=== PATIENT | female | born 1960 | race African-American/Black ===

== ENCOUNTER 2021-07-11 08:13 | Emergency (ER) | payer OTHER ==
[~2021-07-11] VITALS: Ht 160 cm; Wt 131.0 kg
[2021-07-11 08:17] VITALS: BP 161/70
[2021-07-11] MEDS ORDERED: ACETAMINOPHEN 325MG TABLET PO ONE (09:00)
[2021-07-11] MEDS ORDERED: ACET-2708 MT (10:45)
== END 2021-07-11 12:37 | disposition home or self-care (01) ==
LOC: ER 08:13
DX: S83.8X1A Sprain of other specified parts of right knee, initial encounter (principal); M25.461 Effusion, right knee; I10 Essential (primary) hypertension; W01.0XXA Fall on same level from slipping, tripping and stumbling without subsequent striking against object, initial encounter; Y93.89 Activity, other specified; X58.XXXA Exposure to other specified factors, initial encounter; M23.8X1 Other internal derangements of right knee; Y92.512 Supermarket, store or market as the place of occurrence of the external cause
CPT/HCPCS: 73564; 73590; 93971; 99284

== ENCOUNTER 2023-05-31 08:06 | Emergency (ER) | payer OTHER ==
[~2023-05-31] VITALS: Ht 167.6 cm; Wt 120.0 kg
[~2023-05-31 08:06] MED LIST: ACET-2708 MT
[2023-05-31] MEDS ORDERED: DOPAMINE 400MG/250ML PREMIX 250 ML IV ONE (08:16)
[2023-05-31 08:23] VITALS: BP 150/115
[2023-05-31 08:34] VITALS: PULSE 56; RESP 18
== END 2023-05-31 08:34 ==
LOC: ER 08:11
DX: I46.9 Cardiac arrest, cause unspecified (principal)
CPT/HCPCS: 93880; 92950; 96365; 99291; J1265; Z7610 ×3